=== PATIENT | female | born 2000 | race Hispanic/Latino ===

== ENCOUNTER 2025-01-31 15:36 | Emergency (ER) | payer OTHER ==
[~2025-01-31] VITALS: Ht 162.6 cm; Wt 88.7 kg
[2025-01-31] MEDS ORDERED: MULTTAB20 PO (15:45)
[2025-01-31] MEDS ORDERED: ACET-897 PO (15:46)
[2025-01-31 18:54] LABS: HCG, SERUM QUALITATIVE POSITIVE (NEGATIVE)
[2025-01-31 19:09] VITALS: BP 127/70; TEMP 97.5; O2SAT 100
== END 2025-01-31 19:11 | disposition home or self-care (01) ==
LOC: M ED 15:36
DX: M54.41 Lumbago with sciatica, right side (principal); Z32.01 Encounter for pregnancy test, result positive

== ENCOUNTER → 2025-03-20 | Outpatient (REF) | payer OTHER ==
[~2025-03-20] MED LIST: ACET-897 PO; MULTTAB20 PO
== END ==
LOC: M PLALAB 15:05
PROVIDERS: ATTEND Advanced Practice Midwife
DX: Z34.80 Encounter for supervision of other normal pregnancy, unspecified trimester (principal)

== ENCOUNTER → 2025-03-20 | Outpatient (CLI) | payer OTHER ==
[2025-03-20 17:50] LABS: PLATELET COUNT, AUTOMATED 217 10^3/uL (150-450)
[2025-03-20 18:24] LABS: HIV 1&2 SCREEN NEGATIVE (NEGATIVE)
[2025-03-20 18:32] LABS: HEPATITIS C VIRUS ABY INDEX < 0.02 INDEX (<0.8)
[2025-03-20 21:31] LABS: Trichomonas vaginalis (AMP) NOT DETECTED (NEGATIVE)
[2025-03-20 21:55] LABS: GC DNA AMPLIFICATION NEGATIVE (NEGATIVE)
== END ==
LOC: M PLALAB 15:25
PROVIDERS: ATTEND Advanced Practice Midwife
DX: Z34.80 Encounter for supervision of other normal pregnancy, unspecified trimester (principal)